=== PATIENT | female | born 1980 | race Caucasian/White ===

== ENCOUNTER 2018-07-24 22:27 | Emergency (ER) | payer OTHER ==
[~2018-07-24] VITALS: Ht 157.5 cm; Wt 63.5 kg
[~2018-07-24 22:27] MED LIST: ACCUNEB SO1.25 MG/1 INH; ALBUTEROL2.5 MG/31 INH; CIPROFLOXACIN500 M1 PO; CLEOCIN HCL150 MG PO; CLEOCIN HCL300 MG PO; COLACE100 MG PO; DIET PILL; FLAGYL500 MG PO; HYDROCODON-ACE1 EACH PO; HYDROCODONE-AP1 EAC6 PO; IBUPROFEN 400400 M2 PO; MEDROLDOSEPACK PO; MULTIVITAMINS1 EAC7 PO; NOHOMEMEDICATIONS; NORCO 7.5-3251 EACH PO; PERCOCET 5-3251 EACH PO; POLYSPORIN OINT15 GM TP; PREDNISONE50 MG PO; PROAIR HFA8.5 GM; PROAIR HFA8.5 GM IH; TESSALON PERLE100 MG; TESSALON PERLE100 MG PO; TRAMADOL 50 MG50 MG PO; TUCKS1 EAC1 TOP; VENTOLIN HFA INH8 GM IH; ZOFRAN4 MG PO; ZPAK PO
[2018-07-24 23:30] LABS: INFLUENZA A ANTIGEN None Detected (None Detect); INFLUENZA B ANTIGEN None Detected (None Detect)
[2018-07-24] MEDS ORDERED: ZPAK PO (23:43)
[2018-07-24 23:46] VITALS: BP 139/87
== END 2018-07-24 23:47 | disposition home or self-care (01) ==
LOC: M.ERS 22:27
PROVIDERS: Physician Assistant
DX: J32.9 Chronic sinusitis, unspecified (principal); R59.1 Generalized enlarged lymph nodes; J45.909 Unspecified asthma, uncomplicated; F17.210 Nicotine dependence, cigarettes, uncomplicated; Z98.890 Other specified postprocedural states; Z88.0 Allergy status to penicillin; Z88.6 Allergy status to analgesic agent